=== PATIENT | female | born 1940 | race Caucasian/White ===

== ENCOUNTER → 2016-08-20 | Outpatient (CLI) | payer MEDICARE, BC ==
[~2016-08-20] MED LIST: ALBU17AE4 IH; ASPI-557 PO; BUPR100T5 PO; CA C1TAB81 PO; FAMO-136 PO; FLUT10.62 ORAL INH; FURO20TA6 PO; GEMF600T3 PO; HYDR-4074 PO; LEVO200T8 PO; LORA-358 PO; MAGN400C PO; METO2.5T2 PO; POTA-81 PO; ROPI2TAB2 PO; SIMV10TA6 PO; SULF1TAB42 PO; VENL75CA60 PO; VERA120T11 PO
[2016-08-20 10:09] LABS: BASOPHILS % (AUTO) 0.2 % (0-2); EOSINOPHILS # (AUTO) 0.1 T/MM3 (0-0.5); EOSINOPHILS % (AUTO) 2.2 % (0-4); HCT - HEMATOCRIT 29.3 % (36-46); HGB - HEMOGLOBIN 8.1 GM/DL (12-16); IMMATURE GRANULOCYTE # (AUTO) 0.02 T/MM3 (0.00-0.03); IMMATURE GRANULOCYTE % (AUTO) 0.3 % (0.0-0.5); MEAN CORPUSCULAR HGB 20.6 UUG (26-34); MEAN CORPUSCULAR HGB CONC(MCHC 27.6 GM/DL (31-37); MEAN CORPUSCULAR VOLUME 74.6 UM3 (80-100); MEAN PLATELET VOLUME 9.8 UM3 (9.4-12.4); MONOCYTES # (AUTO) 0.5 T/MM3 (0-0.8); MONOCYTES % (AUTO) 8.2 % (0-9.0); NEUTROPHILS #(AUTO)-ABSOLUTE 4.7 T/MM3 (1.8-7.7); NEUTROPHILS % (AUTO) 73.1 % (33-66); RED BLOOD COUNT 3.93 M/MM3 (4.00-5.20); WBC - WHITE BLOOD COUNT 6.4 T/MM3 (4.5-11.0)
[2016-08-20 10:19] LABS: ALBUMIN 4.2 G/DL (3.5-5.0); ALBUMIN/GLOBULIN RATIO 1.2 RATIO (1.1-2.2); ALKALINE PHOSPHATASE 96 U/L (38-126); ALT (SGPT) 29 U/L (9-52); ANION GAP 15 MEQ/L (5-15); AST (SGOT) 23 U/L (14-36); BUN/CREATININE RATIO 17 RATIO (6-26); CHLORIDE 105 MEQ/L (98-107); CO2 - CARBON DIOXIDE 26 MEQ/L (22-30); CREATININE 1.3 MG/DL (0.7-1.2); GLOMERULAR FILTRATION RATE 40; GLUCOSE 99 MG/DL (65-110); LDH 450 U/L (313-618); MAGNESIUM 1.9 MG/DL (1.6-2.3); POTASSIUM 4.3 MEQ/L (3.6-5); SODIUM 146 MEQ/L (134-144); TOTAL PROTEIN 7.7 G/DL (6.3-8.2)
[2016-08-20 10:28] LABS: IGA - IMMUNOGLOBULIN A 353.56 MG/DL (70-400); IGG - IMMUNOGLOBULIN G 1577.63 MG/DL (700-1600); IGM - IMMUNOGLOBULIN M 64.65 MG/DL (40-230)
[2016-08-23 03:11] LABS: FERRITIN 12.5 NG/ML (11-264)
[2016-08-23 03:42] LABS: FOLATE 6.9 NG/ML (2.76-20)
== END ==
LOC: LAB 09:46
PROVIDERS: ATTEND Internal Medicine Hematology & Oncology
DX: D47.2 Monoclonal gammopathy (principal); D64.9 Anemia, unspecified
CPT/HCPCS: 80053; 82607; 82728; 82746; 82784; 83010; 83090; 83540; 83550; 83615; 83735; 83883; 83921; 84155; 84165; 85025; 86334